=== PATIENT | female | born 1965 ===

== ENCOUNTER 2025-01-28 06:01 | Day surgery (SDC) | payer OTHER ==
[2025-01-19 14:04] VITALS: BP 130/76
[~2025-01-28] VITALS: Ht 160 cm; Wt 90.3 kg
[~2025-01-28 06:01] MED LIST: GLUMETZA500 MG PO; NORVASC2.5 M1 PO
[2025-01-28] MEDS ORDERED: BUPIVACAINE HCL 30 ML VIAL IJ ONE (13:45)
[2025-01-28] MEDS ORDERED: CEFTRIAXONE SODIUM 2,000 MG VIAL IV ONE (13:45)
[2025-01-28] MEDS ORDERED: HEMOSTATIC MATRIX 1 KIT KIT TOP ONE (13:45)
[2025-01-28] MEDS ORDERED: BUPIVACAINE LIPOSOME/PF 266 MG/20 ML VIAL IJ ONE (13:45)
[2025-01-28] MEDS ORDERED: POVIDONE-IODINE 118 ML BOTT TOP ONE (13:45)
[2025-01-28] MEDS ORDERED: METRONIDAZOLE/SODIUM CHLORIDE 500 MG/100 ML PIGGYBACK IV ONE (13:45)
[2025-01-28] MEDS ORDERED: MORPHINE SULFATE 2 MG/ML CARTRIDGE IV ONE (19:30)
== END 2025-01-28 20:30 | disposition home or self-care (01) ==
LOC: CIR.AMB 06:01
PROVIDERS: ATTEND Colon & Rectal Surgery
DX: K64.2 Third degree hemorrhoids (principal); K64.4 Residual hemorrhoidal skin tags; E11.9 Type 2 diabetes mellitus without complications